=== PATIENT | female | born 1990 | race Caucasian/White ===

== ENCOUNTER 2018-01-17 19:42 | Emergency (ER) | payer MEDICAID ==
[2018-01-17 21:51] LABS: URINE BLOOD (Dip) POC Negative (NEGATIVE); URINE GLUCOSE (Dip) POC Negative (NEGATIVE); URINE KETONES (Dip) POC Negative (NEGATIVE); URINE LEUKOCYTE EST (Dip) POC Negative (NEGATIVE); URINE NITRITE (Dip) POC Negative (NEGATIVE); URINE TOTAL PROTEIN POC Negative (NEGATIVE)
== END 2018-01-17 23:11 | disposition home or self-care (01) ==
LOC: FTE 19:42
DX: N30.00 Acute cystitis without hematuria (principal)
CPT/HCPCS: 76830; 76856; 81003; 81025; 99284-25